=== PATIENT | male | born 1950 | race Caucasian/White ===

== ENCOUNTER 2021-01-20 12:15 | Emergency (ER) | payer MEDICARE, BC, SELFPAY ==
--- NOTE | ~2021-01-20 | XR_ITS ---
XR ankle LT min 3V 01/20/2021 13:33 INDICATION: Left ankle pain PROCEDURE: 4 views left ankle COMPARISON: No prior studies for comparison. FINDINGS: Fracture, dislocation or subluxation is not identified. Ankle mortise intact. The soft tiss ues appear within normal limits. No foreign bodies are identified. IMPRESSION: 1: NO ACUTE BONE OR JOINT ABNORMALITY IDENTIFIED. Reviewed, dictated and finalized at location B.
[2021-01-20 12:24] VITALS: BP 133/66; PULSE 70; RESP 16; TEMP 36.6; O2SAT 98
[2021-01-20] MEDS: HYDROcodone/acetaminophen (*CRX) 5-325 MG TABLET 1 TAB PO (13:28)
--- NOTE | 2021-01-20 15:46 | ED.GENADULT ---
HPI - General Adult General Chief complaint: Wound/Laceration Stated complaint: Laceration LLE Time Seen by Provider: 01/20/21 12:46 Source: patient, family and RN notes reviewed Mode of arrival: ambulatory Limitations: no limitations History of Present Illness HPI narrative: Patient is a 70-year-old male who presents with left ankle laceration that occurred just prior to arrival patient was home when he had a heavy board fall onto the ankle sustained a laceration patient patient notes moderate aching pain worse with activity and movement notes that his tetanus is up-to-date patient denies other injuries or complaints presents per private vehicle pain is worse with weightbearing and activity Related Data Allergies Allergy/AdvReac Type Severity Reaction Status Date / Time No Known Allergies Allergy Verified 01/20/21 12:47 Review of Systems Review of Systems: All systems reviewed & are unremarkable except as noted in HPI and below PMFSH Past Medical History Medical History (Updated 01/20/21 @ 15:50 by Yan Alaniz PA-C) CLL (chronic lymphocytic leukemia) Social History Social History (Updated 01/20/21 @ 15:47 by Yan Alaniz PA-C) Smoking status: Never smoker Exam Narrative: Exam Narrative: GENERAL: Well-appearing, well-nourished, and in no acute distress. HEAD: Normocephalic, atraumatic. EYES: PERRLA and EOMI. ENT: Nares clear, no rhinorrhea or epistaxis. Mucous membranes moist. EXTREMITIES: Normal range of motion. No edema. SKIN: Warm, dry, no rash. 3 and half centimeter flap laceration just above the left ankle laterally. NEURO: No focal deficits. Alert and oriented x3. Neurovascularly intact. Capillary refill less than 2 seconds. PSYCH: Normal mood and affect. Course Course Emergency Course: Patient's wound was closed in the emergency department he presented with left ankle laceration will follow with plastic surgery patient agrees with this treatment plan neurovascularly intact pre and post procedure Consultations Consultation #1: Spoke with Dr. Albarran plastic surgeon regarding this patient and agrees to follow with plastic surgery for wound reevaluation given the trauma Date: 01/20/21 Vital Signs Vital signs: Vital Signs Temperature 97.8 F 01/20/21 12:24 Pulse Rate 70 01/20/21 12:24 Respiratory Rate 16 01/20/21 12:24 Blood Pressure 133/66 01/20/21 12:24 Pulse Oximetry 98 01/20/21 12:24 Temperature 97.8 F 01/20/21 12:24 Pulse Rate 70 01/20/21 12:24 Respiratory Rate 16 01/20/21 12:24 Blood Pressure 133/66 01/20/21 12:24 Pulse Oximetry 98 01/20/21 12:24 Procedures Laceration Laceration 1: Date: 01/20/21 Site: lower extremity Side (If applicable): left Size (cm): 3.5 Description: flap Local Anesthetic: lidocaine 1% Pre-repair: wound explored, irrigated and irrigated extensively ====== Skin Level ====== Skin layer closed with: james Number of sutures: 21 ====== Subcutaneous Layer ====== ====== Muscle Layer ====== ====== Tendon Layer ====== Dressing: Antibiotic ointment nonadhesive 4 x 4 and Coban placed post procedure Medical Decision Making MDM Narrative Medical decision making narrative: Patients injury or pain is consistent with musculoskeletal etiology. No signs of neurological or vascular compromise on exam. Compartments and tisues are soft without signs of compartment syndrome. Pain is felt appropriate for further evaluation on an outpatient basis. Wound closed in the emergency department with plastic surgery follow-up Vital Signs Vital Signs: Vital Signs Temperature 97.8 F 01/20/21 12:24 Pulse Rate 70 01/20/21 12:24 Respiratory Rate 16 01/20/21 12:24 Blood Pressure 133/66 01/20/21 12:24 Pulse Oximetry 98 01/20/21 12:24 Temperature 97.8 F 01/20/21 12:24 Pulse Rate 70 01/20/21 12:24 Respiratory Rate 16 01/20/21 12:24
[2021-01-20 16:04] VITALS: BP 128/79; PULSE 62; RESP 19; O2SAT 98
== END 2021-01-20 16:05 | disposition home or self-care (01) ==
PROVIDERS: Emergency Provider Emergency Medicine; PCP Internal Medicine
DX: S91.012A Laceration without foreign body, left ankle, initial encounter (principal); Z85.6 Personal history of leukemia; Z79.01 Long term (current) use of anticoagulants; Z86.718 Personal history of other venous thrombosis and embolism; I10 Essential (primary) hypertension; E03.9 Hypothyroidism, unspecified; W20.8XXA Other cause of strike by thrown, projected or falling object, initial encounter
CPT/HCPCS: 12002; 73610; 99283; A9270